=== PATIENT | male | born 1965 | race Caucasian/White ===

== ENCOUNTER 2017-05-10 12:50 | Emergency (ER) | payer BC ==
[2017-05-10] MEDS ORDERED: Sodium Chloride 0.9% 10 ML Syringe FLUSH PRN (13:37)
[2017-05-10] MEDS: Sodium Chloride 0.9% 1,000 ML IV ONE (13:45)
[2017-05-10] MEDS: Ketorolac 30 MG/ML SDV IVPUSH ONE (13:45)
--- NOTE | 2017-05-10 13:45 | EDM.PDOC ---
ED HPI GENERAL MEDICAL PROBLEM - General Chief Complaint: Flank Pain Stated Complaint: [id number] KIDNEY STONE Time Seen by Provider: 05/10/17 13:25 Source of Information: Reports: Patient, Family, RN, RN Notes Reviewed History Limitations: Reports: No Limitations - History of Present Illness INITIAL COMMENTS - FREE TEXT/NARRATIVE: Pt presents to the ER with c/o right flank pain. He states he has had kidney stones in the past. Onset: Today, Sudden Right Flank Pain Score (Numeric/FACES): 8 - Related Data Allergies Allergy/AdvReac Type Severity Reaction Status Date / Time No Known Allergies Allergy Verified 05/10/17 13:04 Home Meds: Home Meds . [No Known Home Meds] 05/10/17 [History] Past Medical History Genitourinary History: Reports: Renal Calculus Oncologic (Cancer) History: Reports: Esophageal, Other (See Below) Other Oncologic History: Had chemo and radiation, in remission. Social & Family History - Tobacco Use Smoking Status *Q: Never Smoker Second Hand Smoke Exposure: No ED ROS GENERAL - Review of Systems Review Of Systems: ROS reveals no pertinent complaints other than HPI. ED EXAM, RENAL/ - Physical Exam Exam: See Below Exam Limited By: No Limitations General Appearance: Alert, WD/WN, Moderate Distress Eye Exam: Bilateral Eye: EOMI, Normal Inspection, PERRL Ears: Normal External Exam, Hearing Grossly Normal Nose: Normal Inspection Throat/Mouth: Normal Inspection, Normal Voice, No Airway Compromise Head: Atraumatic, Normocephalic Neck: Normal Inspection, Supple, Non-Tender, Full Range of Motion Respiratory/Chest: No Respiratory Distress, Lungs Clear, Normal Breath Sounds, No Accessory Muscle Use, Chest Non-Tender Cardiovascular: Normal Peripheral Pulses, Regular Rate, Rhythm, No Edema, No Gallop, No JVD, No Murmur, No Rub GI/Abdominal: Normal Bowel Sounds, Soft, No Organomegaly, No Distention, No Abnormal Bruit, No Mass, Guarding, Tender (RLQ, RUQ) (Male) Exam: Deferred Rectal (Males) Exam: Deferred Back Exam: Normal Inspection, CVA Tenderness (R), Decreased Range of Motion. No : CVA Tenderness (L) Extremities: Normal Inspection, Normal Range of Motion, Non-Tender, No Pedal Edema, Normal Capillary Refill Neurological: Alert, Oriented, CN II-XII Intact, Normal Cognition, Normal Gait, Normal Reflexes, No Motor/Sensory Deficits Psychiatric: Normal Affect, Normal Mood Skin Exam: Warm, Dry, Intact, Normal Color, No Rash Lymphatic: No Adenopathy Course - Vital Signs Last Recorded V/S: Last Vital Signs Temp 97 F 05/10/17 13:01 Pulse 56 L 05/10/17 13:01 Resp 18 05/10/17 13:01 BP 154/93 H 05/10/17 13:01 Pulse Ox 99 05/10/17 13:01 - Orders/Labs/Meds Orders: Active Orders 24 hr Category Date Time Status Peripheral IV Care [RC] . DIRECTED Care 05/10/17 13:37 Active Abdomen Pelvis wo Cont [CT] Urgent Exams 05/10/17 14:08 Taken Sodium Chloride 0.9% [Saline Flush] Med 05/10/17 13:37 Active 10 ml FLUSH ASDIRECTED PRN Peripheral IV Insertion Adult [OM.PC] Stat Oth 05/10/17 13:36 Ordered Medication Orders Sodium Chloride (Saline Flush) 10 ml FLUSH ASDIRECTED PRN PRN Reason: Keep Vein Open Labs: Laboratory Tests 05/10/17 05/10/17 05/10/17 Range/Units 13:44 13:44 13:44 WBC 8.5 (5.0-10.0) 10^3/uL RBC 4.45 L (4.6-6.2) 10^6/uL Hgb 14.0 (14.0-18.0) g/dL Hct 41.4 (40.0-54.0) % MCV 93.0 (80-100) fL MCH 31.5 (27.0-34.0) pg MCHC 33.8 (33.0-35.0) g/dL Plt Count 261 (150-450) 10^3/uL Neut % (Auto) 75.1 (42.2-75.2) % Lymph % (Auto) 16.8 L (20.5-50.1) % [place] % (Auto) 7.1 (2-8) % Eos % (Auto) 0.8 L (1.0-3.0) % Baso % (Auto) 0.2 (0.0-1.0) % Sodium 137 (135-145) mmol/L Potassium 4.4 (3.6-5.0) mmol/L Chloride 103 (101-111) mmol/L Carbon Dioxide 27.0 (21.0-31.0) mmol/L Anion Gap 11.4 BUN 13 (7-18) mg/dL Creatinine 1.4 H (0.6-1.3) mg/dL Est Cr Clr Drug Dosing 67.98 mL/min Estimated GFR (MDRD) 54 BUN/Creatinine Ratio 9.28 Glucose 106 H (74-105) mg/dL Calcium 9.2 (8.4-10.2) mg/dl Total Bilirubin 1.2 H (0.2-1.0) mg/dL AST 27 (10-42) IU/L ALT 23 (10-60) IU/L Alkaline Phosphatase 64 (42-121) IU/L Total Protein 8.1 (6.7-8.2) g/dl Albumin 4.7 (3.2-5.5) g/dl Globulin 3.4 Albumin/Globulin Ratio 1.38 Urine Color Aleksandra (YELLOW) Urine Appearance Cloudy (CLEAR) Urine pH 5.5 (5.0-9.0) Ur Specific [place] 1.025 (1.005-1.030) Urine Protein 100 H (NEGATIVE) Urine Glucose (UA) Negative (NEGATIVE) Urine Ketones Trace H (NEGATIVE) Urine Occult Blood Large H (NEGATIVE) Urine Nitrite Negative (NEGATIVE) Urine Bilirubin Small H (NEGATIVE) Urine Urobilinogen 1.0 (0.2-1.0) mg/dL Ur Leukocyte Esterase Negative (NEGATIVE) Urine RBC >100 H /HPF Urine WBC 0-5 (0-5/HPF) /HPF Ur Epithelial Cells Few /HPF Amorphous Sediment Moderate (0/HPF) /HPF Urine Bacteria Few (0-FEW/HPF) /HPF Urine Mucus Many H /LPF Meds: Medications Generic Name Dose Route Start Last Admin Trade Name Freq PRN Reason Stop Dose Admin Sodium Chloride 10 ml 05/10/17 13:37 Saline Flush FLUSH ASDIRECTED PRN Keep Vein Open Discontinued Medications Generic Name Dose Route Start Last Admin Trade Name Freq PRN Reason Stop Dose Admin Sodium Chloride 1,000 mls @ 999 mls/hr 05/10/17 13:37 05/10/17 13:45 Normal Saline IV 05/10/17 14:37 999 mls/hr .BOLUS ONE Administration Ketorolac Tromethamine 30 mg 05/10/17 13:37 05/10/17 13:45 Toradol IVPUSH 05/10/17 13:38 30 mg ONETIME ONE Administration - Radiology Interpretation Free Text/Narrative:: IMPRESSION: 1. Calculus in right ureter orifice, moderate right hydronephrosis and hydroureter. 2. Bilateral nephrolithiasis. 3. Remaining findings as above. Thank you for allowing us to participate in the care of your patient. Dictated and Authenticated by: Jaky Hernández MD 05/10/2017 3:01 PM Central Time ([place] & [place]) See rad report - Re-Assessments/Exams Free Text/Narrative Re-Assessment/Exam: 05/10/17 15:32 Discussed Pt case with Dr. Hills, ER physician. He states if the patient does not have a fever or infected urine, he could try to pass the stone at home. He should follow up with Urology next week. He suggested Flomax, Percocet , and Zofran. Departure - Departure Time of Disposition: 15:33 Disposition: Home, Self-Care 01 Condition: Fair Clinical Impression: Nephrolithiasis Hydronephrosis Qualifiers: Hydronephrosis type: with ureteral calculous obstruction Qualified Code(s): N13.2 - Hydronephrosis with renal and ureteral calculous obstruction - Discharge Information Instructions: Kidney Stones, [id number] Forms: ED Department Discharge Additional Instructions: RX: Flomax, Percocet, Zofran Drink plenty of water Return to the ER with increased pain, fever, trouble with urination. Follow up with Urology or your primary care facility next week. - My Orders Last 24 Hours: My Active Orders 05/10/17 13:36 Peripheral IV Insertion Adult [OM.PC] Stat 05/10/17 13:37 Peripheral IV Care [RC] . DIRECTED Sodium Chloride 0.9% [Saline Flush] 10 ml FLUSH ASDIRECTED PRN 05/10/17 14:08 Abdomen Pelvis wo Cont [CT] Urgent - Assessment/Plan Last 24 Hours: My Active Orders 05/10/17 13:36 Peripheral IV Insertion Adult [OM.PC] Stat 05/10/17 13:37 Peripheral IV Care [RC] . DIRECTED Sodium Chloride 0.9% [Saline Flush] 10 ml FLUSH ASDIRECTED PRN 05/10/17 14:08 Abdomen Pelvis wo Cont [CT] Urgent
== END 2017-05-10 15:44 | disposition home or self-care (01) ==
LOC: DL.ED 12:50
DX: N13.2 Hydronephrosis with renal and ureteral calculous obstruction (principal)
CPT/HCPCS: 36415; 74176; 80053; 81001; 85025; 96361; 96374; 99284; J1885; J7030